=== PATIENT | female | born 1975 | race Caucasian/White ===

== ENCOUNTER 2021-08-17 11:46 | Inpatient (IN) | payer BC, MEDICAID ==
[~2021-08-17] VITALS: Ht 157.5 cm; Wt 44.0 kg
[2021-08-17] MEDS ORDERED: HUMALOG (11:49)
[2021-08-17] MEDS ORDERED: MORPHINE SULFATE 4 MG/ML CPJ (NOT FOR IM USE) IV STA (12:11)
[2021-08-17] MEDS ORDERED: ONDANSETRON HCL 4MG/2ML INJ IV STA (12:11)
[2021-08-17] MEDS ORDERED: LORAZEPAM 2MG/ML CPJ IV ONE (12:15)
[2021-08-17] MEDS ORDERED: SODIUM CHLORIDE 0.9% 1000ML BAG (SEPSIS BOLUS) IV ONE (12:15)
[2021-08-17 12:55] LABS: BASOPHILS % 0.2 % (0.0-2.0); EOSINOPHILS % 1.4 % (0.0-5.0); HEMATOCRIT. 36.2 % (36.0-48.0); HEMOGLOBIN. 12.5 g/dL (12.0-16.0); LYMPHOCYTES % 16.2 % (20.0-50.0); MEAN CORPUSCULAR VOLUME 78.1 fL (81.0-99.0); MEAN PLATELET VOLUME 7.6 fl (7.4-10.4); NEUTROPHILS % 78.2 % (40.0-76.0); PLATELET 314 x1000/uL (130-400); RED BLOOD CELL COUNT 4.63 mill/uL (4.2-5.4); RED CELL DISTRIBUTION WIDTH 16.8 % (11.6-14.6)
[2021-08-17 13:02] LABS: CHLORIDE 100 mEq/L (98-107)
[2021-08-17 13:04] LABS: ETHANOL BLOOD < 10 mg/dL
[2021-08-17 13:07] LABS: BETA HYDROXYBUTYRATE 0.6 mMol/L (0.0-0.3)
[2021-08-17] MEDS ORDERED: INSULIN REGULAR (HUMULIN R) 300UNITS/3ML VIAL IV ONE (13:15)
[2021-08-17] MEDS ORDERED: IOHEXOL-300 50 ML BOTTLE IV ONE (13:27)
[2021-08-17 13:29] LABS: HCG SCREEN NEGATIVE
[2021-08-17 13:40] LABS: PROTHROMBIN TIME 10.7 sec (9.6-11.0)
[2021-08-17 14:10] LABS: BG BASE EXCESS -3.9 mmol/L (-2.0-2.0); BG CARBOXYHEMOGLOBIN 0.1 % (0.5-1.5); BG DEOXYHEMOGLOBIN 3.7 % (0.0-5.0); BG FRACTION INSPIRED OXYGEN 21; BG HCO3 ACT 21.2 mmol/L (22.0-26.0); BG METHEMOGLOBIN 0.1 % (0.0-1.5); BG OXYGEN SATURATION 96.3 % (92.0-98.5); BG OXYHEMOGLOBIN 96.1 % (94.0-97.0); BG PCO2 39.1 mmHg (35.0-45.0); BG PH 7.353 (7.350-7.450); BG PO2 93.4 mmHg (75.0-100.0); BG SAMPLE SITE RIGHT BRACHIAL; BG VENT MODE ROOM AIR
[2021-08-17] MEDS ORDERED: DIATR MEGLU/DIATRIZOATE SOLN 30ML ONE (15:27)
[2021-08-17] MEDS ORDERED: PIPERACILLIN/TAZ 3.375G PREMIX 50 ML IV ONE (16:30)
[2021-08-17 20:00] VITALS: BP 118/78
[2021-08-17] MEDS ORDERED: DEXT 5%/0.45% NACL 1000ML 1,000 ML IV SCH (21:00)
[2021-08-17] MEDS: INSULIN LISPRO 100 UNITS/ML SUBCUT SCH (21:00)
[2021-08-17] MEDS ORDERED: ENOXAPARIN 40MG/0.4ML SYR SUBCUT SCH (21:00)
[2021-08-17] MEDS ORDERED: DEXTROSE 50% WATER 50ML SYRINGE IV PRN (21:00)
[2021-08-17] MEDS ORDERED: ONDANSETRON HCL 4MG/2ML INJ IV PRN (21:00)
[2021-08-17] MEDS: BLOOD SUGAR DIAGNOSTIC STRIP TEST SCH (21:47)
[2021-08-18] VITALS: BP 129/83
[2021-08-18 04:00] VITALS: BP 145/84
[2021-08-18] MEDS: MORPHINE SULFATE 2 MG/ML CPJ (NOT FOR IM USE) IV PRN ×2 (05:16→14:32)
[2021-08-18] MEDS: BLOOD SUGAR DIAGNOSTIC STRIP TEST SCH ×2 (06:39→12:50)
[2021-08-18 08:00] VITALS: BP 145/94
[2021-08-18] MEDS: INSULIN LISPRO 100 UNITS/ML SUBCUT SCH ×2 (09:04→13:41)
[2021-08-18 11:02] LABS: BASOPHILS % 0.3 % (0.0-2.0); HEMATOCRIT. 37.4 % (36.0-48.0); HEMOGLOBIN. 12.6 g/dL (12.0-16.0); LYMPHOCYTES % 31.6 % (20.0-50.0); MEAN CORPUSCULAR HEMOGLOBIN 26.8 pg (28.0-32.0); MEAN CORPUSCULAR VOLUME 79.9 fL (81.0-99.0); MONOCYTES % 6.8 % (2.0-8.0); NEUTROPHILS % 58.3 % (40.0-76.0); PLATELET 300 x1000/uL (130-400); RED BLOOD CELL COUNT 4.69 mill/uL (4.2-5.4); RED CELL DISTRIBUTION WIDTH 16.9 % (11.6-14.6)
[2021-08-18 12:00] VITALS: BP 126/89
[2021-08-18 12:10] LABS: CHLORIDE 106 mEq/L (98-107)
[2021-08-18 12:21] LABS: PHOSPHORUS 3.1 mg/dL (2.5-4.9)
[2021-08-18 17:07] VITALS: BP 126/89
== END 2021-08-18 18:36 | disposition home or self-care (01) | DRG 420 ==
LOC: ER 12:05 → 6EST 16:46 → EDBEDREQ 16:57 → EDBEDREQSVC 16:57 → EDBEDREQTM 16:57 → ENRESERV 18:08
PROVIDERS: ADMIT Internal Medicine; ATTEND Internal Medicine
DX: E11.65 Type 2 diabetes mellitus with hyperglycemia (principal); E44.0 Moderate protein-calorie malnutrition; E87.1 Hypo-osmolality and hyponatremia; Z20.822 Contact with and (suspected) exposure to COVID-19; Z93.1 Gastrostomy status; Z87.19 Personal history of other diseases of the digestive system; Z68.1 Body mass index [BMI] 19.9 or less, adult; R10.9 Unspecified abdominal pain
CPT/HCPCS: 36415; 36600; 71045; 74018; 74177; 80048; 80053; 80076; 80320; 82010; 82375; 82805; 82962; 83036; 83605; 83735; 83880; 84100; 84145; 84484; 84703; 85025; 87426; 93005; 99291; J1650; J1815; J2060; J2270; J2405; J2543; J7030; Q9963; Q9967; G0480

== ENCOUNTER 2023-12-05 22:35 | Inpatient (IN) | payer OTHER ==
[~2023-12-05] VITALS: Ht 157.5 cm; Wt 41.3 kg
[2023-12-05] MEDS: SODIUM CHLORIDE 0.9% 1,000 ML IV ONE
[~2023-12-05 22:35] MED LIST: HUMALOG
[2023-12-05] MEDS ORDERED: ONDANSETRON HCL 4MG/2ML INJ IV STA (23:14)
[2023-12-05] MEDS: ONDANSETRON HCL 4MG/2ML INJ IV NR (23:30)
[2023-12-06 00:04] LABS: BASOPHILS % 0.4 % (0.0-2.0); EOSINOPHILS % 0.6 % (0.0-5.0); HEMATOCRIT. 39.9 % (36.0-48.0); HEMOGLOBIN. 13.8 g/dL (12.0-16.0); LYMPHOCYTES % 15.3 % (20.0-50.0); MEAN CORPUSCULAR HEMOGLOBIN 29.8 pg (28.0-32.0); MEAN CORPUSCULAR HGB CONC 34.7 g/dL (31.0-37.0); MEAN CORPUSCULAR VOLUME 85.9 fL (81.0-99.0); MEAN PLATELET VOLUME 8.2 fl (7.4-10.4); MONOCYTES % 4.5 % (2.0-8.0); NEUTROPHILS % 79.2 % (40.0-76.0); PLATELET 264 x1000/uL (130-400); RED BLOOD CELL COUNT 4.64 mill/uL (4.2-5.4); RED CELL DISTRIBUTION WIDTH 13.2 % (11.6-14.6); WHITE BLOOD COUNT 9.3 x1000/uL (4.5-11.0)
[2023-12-06 00:09] LABS: INR 0.9; PROTHROMBIN TIME 10.6 sec (9.6-11.0)
[2023-12-06 00:15] LABS: CHLORIDE 105 mEq/L (98-107); POTASSIUM 3.7 mEq/L (3.5-5.1); SODIUM 139 mEq/L (136-145)
[2023-12-06 00:16] LABS: CARBON DIOXIDE 29 mEq/L (21-32)
[2023-12-06 00:20] LABS: HCG SCREEN NEGATIVE
[2023-12-06 00:21] LABS: CREATININE 0.7 mg/dL (0.6-1.0); GLUCOSE 130 mg/dL (70-105)
[2023-12-06 00:22] LABS: UREA NITROGEN BLOOD 13 mg/dL (9-23)
[2023-12-06 00:23] LABS: ALANINE AMINOTRANSFERASE 31 IU/L (10-49); ALBUMIN 4.1 g/dL (3.2-4.8); ASPARTATE AMINOTRANSFERASE 28 IU/L (<34)
[2023-12-06 00:24] LABS: BILIRUBIN DIRECT 0.2 mg/dL (<=3.0); BILIRUBIN TOTAL 0.7 mg/dL (0.1-1.0)
[2023-12-06] MEDS: MORPHINE SULFATE 4 MG/ML INJ (FOR IV/IM USE) IV STA (01:06)
[2023-12-06] MEDS ORDERED: ONDANSETRON HCL 4MG/2ML INJ IV PRN (02:00)
[2023-12-06] MEDS ORDERED: DIPHENHYDRAMINE 50MG/ML VIAL IV PRN (02:00)
[2023-12-06] MEDS ORDERED: ACETAMINOPHEN 650MG SUPP PR PRN (02:00)
[2023-12-06] MEDS ORDERED: IOHEXOL-300 100 ML BOTTLE ONE (02:13)
[2023-12-06] MEDS: DEXT 5%/0.45% NACL 1000ML 1,000 ML IV SCH (02:27)
[2023-12-06] MEDS: MORPHINE SULFATE 2 MG/ML CPJ (NOT FOR IM USE) IV PRN (03:25)
[2023-12-06 03:43] VITALS: BP 129/86; PULSE 66; RESP 18; TEMP 97.7
[2023-12-06] MEDS: INSULIN LISPRO 100 UNITS/ML SUBCUT SCH (06:28)
[2023-12-06] MEDS: BLOOD SUGAR DIAGNOSTIC STRIP TEST SCH (06:28)
[2023-12-06 08:00] VITALS: BP 129/85; PULSE 86; RESP 16; TEMP 97.8
[2023-12-06] MEDS: FAMOTIDINE 20MG/2ML VIAL IV SCH (08:40)
[2023-12-06 12:00] VITALS: BP 110/73; PULSE 91; RESP 16; TEMP 98.1
[2023-12-06] MEDS: SODIUM CHLORIDE 0.9% 1,000 ML IV SCH (15:05)
[2023-12-06 16:00] VITALS: BP 112/75; PULSE 92; RESP 16; TEMP 97.8
[2023-12-06 20:00] VITALS: BP 115/75; PULSE 100; RESP 19; TEMP 98
[2023-12-06] MEDS: KETOROLAC 15MG/ML VIAL IV PRN (21:32)
[2023-12-06] MEDS: INSULIN GLARGINE 100 UNITS/ML SUBCUT SCH (22:34)
[2023-12-07] VITALS: BP 110/69; PULSE 99; RESP 18; TEMP 97.6
[2023-12-07 00:11] LABS: *AMPHETAMINES SCREEN URINE PRESUMPTIVE POSITIVE (NEGATIVE); *BARBITURATES SCREEN URINE NEGATIVE (NEGATIVE); *BENZODIAZEPINES SCREEN URINE NEGATIVE (NEGATIVE); *COCAINE SCREEN URINE NEGATIVE (NEGATIVE); METHADONE URINE SCREEN NEGATIVE (NEGATIVE); OPIATES URINE SCREEN PRESUMPTIVE POSITIVE (NEGATIVE); PHENCYCLIDINE URINE SCREEN NEGATIVE (NEGATIVE)
[2023-12-07 00:12] LABS: CANNABINOID URINE SCREEN NEGATIVE (NEGATIVE); ECSTASY MDMA SCREEN URINE CONF.TEST INDICATED (NEGATIVE)
[2023-12-07 00:17] LABS: CLARITY URINE CLOUDY (CLEAR); COLOR URINE YELLOW (YELLOW); GLUCOSE URINE 3+ (NEGATIVE); KETONES URINE NEGATIVE (NEGATIVE); LEUKOCYTE ESTERASE URINE 1+ (NEGATIVE); NITRITE URINE NEGATIVE (NEGATIVE); OCCULT BLOOD URINE NEGATIVE (NEGATIVE); PROTEIN URINE TRACE (NEGATIVE); SPECIFIC GRAVITY URINE 1.055 (1.005-1.030)
[2023-12-07 04:00] VITALS: BP 97/59; PULSE 100; RESP 18; TEMP 98.6
[2023-12-07 08:54] LABS: BACTERIA URINE 3+; RBC URINE 0-2 /hpf (0-2); SQUAMOUS EPITHELIAL CELL URINE 2+ /lpf (RARE/1+); YEAST URINE NONE SEEN
[2023-12-07 09:00] VITALS: BP 118/73; PULSE 70; RESP 20; TEMP 97.5
[2023-12-07 12:00] VITALS: BP 131/80; PULSE 87; RESP 20; TEMP 97.7
[2023-12-07 16:00] VITALS: BP 140/66; PULSE 80; RESP 20; TEMP 98.2
[2023-12-07 20:00] VITALS: BP 123/80; PULSE 87; RESP 18; TEMP 97.4
[2023-12-07] MEDS: INSULIN GLARGINE 100 UNITS/ML SUBCUT SCH (22:35)
[2023-12-08] VITALS: BP 131/70; PULSE 85; RESP 20; TEMP 97.3
[2023-12-08] MEDS: DEXTROSE 50% WATER 50ML SYRINGE IV PRN (00:58)
[2023-12-08 06:33] LABS: INR 0.9; PROTHROMBIN TIME 10.2 sec (9.6-11.0)
[2023-12-08 06:50] LABS: CHLORIDE 109 mEq/L (98-107); POTASSIUM 4.4 mEq/L (3.5-5.1); SODIUM 141 mEq/L (136-145)
[2023-12-08 06:51] LABS: CALCIUM 8.4 mg/dL (8.7-10.4); CARBON DIOXIDE 26 mEq/L (21-32)
[2023-12-08 06:56] LABS: CREATININE 0.5 mg/dL (0.6-1.0); GLUCOSE 128 mg/dL (70-105); UREA NITROGEN BLOOD 12 mg/dL (9-23)
[2023-12-08 07:28] LABS: BASOPHILS % 0.2 % (0.0-2.0); EOSINOPHILS % 1.4 % (0.0-5.0); HEMATOCRIT. 35.3 % (36.0-48.0); HEMOGLOBIN. 11.9 g/dL (12.0-16.0); LYMPHOCYTES % 19.3 % (20.0-50.0); MEAN CORPUSCULAR HEMOGLOBIN 29.5 pg (28.0-32.0); MEAN CORPUSCULAR HGB CONC 33.8 g/dL (31.0-37.0); MEAN CORPUSCULAR VOLUME 87.1 fL (81.0-99.0); MONOCYTES % 6.5 % (2.0-8.0); NEUTROPHILS % 72.6 % (40.0-76.0); PLATELET 203 x1000/uL (130-400); RED BLOOD CELL COUNT 4.05 mill/uL (4.2-5.4); RED CELL DISTRIBUTION WIDTH 13.1 % (11.6-14.6); WHITE BLOOD COUNT 4.5 x1000/uL (4.5-11.0)
[2023-12-08 08:00] VITALS: BP 126/82; PULSE 87; RESP 18; TEMP 96
[2023-12-08] MEDS ORDERED: CEFAZOLIN 1000MG PREMIX 50 ML IV NR (09:00)
[2023-12-08] MEDS: CEFAZOLIN 1000MG PREMIX 50 ML IV NR (10:40)
[2023-12-08] MEDS ORDERED: PROPOFOL 200MG/20ML VIAL IV ONE ×2 (11:34→12:42)
[2023-12-08] MEDS ORDERED: MIDAZOLAM HCL 2 MG/2 ML VIAL ONE (11:34)
[2023-12-08] MEDS ORDERED: ONDANSETRON HCL 4MG/2ML INJ ONE (11:34)
[2023-12-08] MEDS ORDERED: DEXAMETHASONE 4MG/ML 1ML VIAL ONE (12:41)
[2023-12-08] MEDS ORDERED: FENTANYL CITRATE/PF 50MCG/ML 2ML VIAL ONE (12:42)
[2023-12-08] MEDS: SODIUM CHLORIDE 0.9% 1,000 ML IV SCH (13:30)
[2023-12-08] MEDS ORDERED: NALOXONE HCL 0.4MG/ML VIAL IV PRN (14:00)
[2023-12-08] MEDS: MORPHINE SULFATE 4 MG/ML INJ (FOR IV/IM USE) IV PRN (15:20)
[2023-12-08 20:00] VITALS: BP 98/60; PULSE 91; RESP 17; TEMP 96.9
[2023-12-08] MEDS: CEFTRIAXONE 1GM/50ML 50 ML IV SCH (21:29)
[2023-12-09] VITALS: BP 112/70; PULSE 81; RESP 17; TEMP 96.9
[2023-12-09 08:00] VITALS: BP 113/75; PULSE 83; RESP 18; TEMP 98.1
[2023-12-09 12:00] VITALS: BP 120/81; PULSE 92; RESP 20; TEMP 99.9
[2023-12-09 12:03] VITALS: RESP 17
[2023-12-09 14:33] VITALS: BP 120/81; PULSE 92; TEMP 99.9; O2SAT 100
[2023-12-09 16:00] VITALS: TEMP 97.9
[2023-12-09] MEDS: ACETAMINOPHEN 650MG SUPP PR PRN (17:08)
== END 2023-12-09 17:36 | disposition home or self-care (01) | DRG 394 ==
LOC: ER 22:35 → 6WST 12-06 01:46 → EDBEDREQ 12-06 01:51 → ER 12-06 03:30
PROVIDERS: ADMIT Internal Medicine; ATTEND Internal Medicine
PROC: 0D20XUZ Change Feeding Device in Upper Intestinal Tract, External Approach (ICD-10-PCS; 2023-12-07)
PROC: 0DB78ZX Excision of Stomach, Pylorus, Via Natural or Artificial Opening Endoscopic, Diagnostic (ICD-10-PCS; principal; 2023-12-08)
PROC: 0D758ZZ Dilation of Esophagus, Via Natural or Artificial Opening Endoscopic (ICD-10-PCS; 2023-12-08)
PROC: 0DH63UZ Insertion of Feeding Device into Stomach, Percutaneous Approach (ICD-10-PCS; 2023-12-08)
DX: K94.23 Gastrostomy malfunction (principal); E46 Unspecified protein-calorie malnutrition; Z68.1 Body mass index [BMI] 19.9 or less, adult; K22.2 Esophageal obstruction; E11.9 Type 2 diabetes mellitus without complications
CPT/HCPCS: 36415; 71045; 74177; 80048; 80076; 80305; 81003; 82962; 83036; 83880; 84703; 85025; 88305; 99285; C1726; C1769; J0690; J0696; J1100; J1815; J1885; J2250; J2270; J2405; J2704; J3010; J3490; J7030; Q9967